=== PATIENT | male | born 2000 | race Two or more races ===

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

== ENCOUNTER 2020-05-30 17:45 | Emergency (ER) | payer OTHER ==
[~2020-05-30] VITALS: Ht 180.3 cm; Wt 83.1 kg
[2020-05-30] MEDS ORDERED: IBUP200C88 PO (17:50)
--- NOTE | 2020-05-30 18:51 | REP ---
INDICATION: right-sided chest pain COMPARISON: None. TECHNIQUE: PA and lateral. FINDINGS: The mediastinum and cardiac silhouette are normal. The lung miner are clear and without acute consolidation, effusion, or pneumothorax. The skeletal structures are intact and normal. IMPRESSION: No acute cardiopulmonary process. <Electronically signed by Andres Bearden > 05/30/20 1928
[2020-05-30] MEDS ORDERED: KETO10TAB PO (21:53)
[2020-05-30] MEDS ORDERED: KETOROLAC TROMETHAMINE 10 MG TAB PO ONE (22:00)
[2020-05-30 22:05] VITALS: BP 128/74
--- NOTE | 2020-06-01 12:36 | ECGEPIP ---
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
== END 2020-05-30 22:09 | disposition home or self-care (01) ==
LOC: M ED 17:45
DX: R07.9 Chest pain, unspecified (principal); S29.011A Strain of muscle and tendon of front wall of thorax, initial encounter; X58.XXXA Exposure to other specified factors, initial encounter; Y92.9 Unspecified place or not applicable; Y93.9 Activity, unspecified; Y99.9 Unspecified external cause status